=== PATIENT | female | born 1940 | race Caucasian/White ===

== ENCOUNTER → 2023-01-23 10:45 | Outpatient (CLI) | payer MEDICARE, BC, SELFPAY ==
--- NOTE | 2023-01-23 | DI.NM.S_ITS ---
PROCEDURE: NM BONE 3 PHASE RADIOPHARMACEUTICAL: 21.2 mCi Tc-99m MDP IV. INDICATIONS: LEFT ISCHIAL DECUBITUS ULCER TECHNIQUE: Multiple bone scintigrams were obtained after intravenous injection of Tc-99m MDP, including flow, blood pool, and delayed images centered to the region of interest. COMPARISON: [facility], RG, CT PELVIS W/O CONTRAST, 11/25/2022, 11:30. FINDINGS: A triple phase bone scan was obtained, including flow, blood pool and delayed images centered to the pelvis. The posterior flow and blood pool images demonstrate mildly increased activity in the medial aspect of the left buttock area. Delayed images demonstrate a focal uptake in the area involved the left ischial tuberosity and below the left ischial tuberosity. There is increased activity in hips bilaterally, right greater than left. IMPRESSION: 1. There is delayed increased activity involving the left ischial tuberosity and below the ischial tuberosity. On the posterior flow and blood pool images, there is mildly increased soft tissue activity in medial aspect of the left buttock suggesting soft tissue infection. There is no definitively increased bone uptake but tracer uptake in the bone (left ischium) on flow and blood pool images but overall osseous uptake for both phases are relatively poor and can be obscured by overlying soft tissue. The bone scan findings, therefore, are equivocal for acute osteomyelitis. Consider MRI if clinically indicated. 2. Increased activity in hips bilaterally, left greater than right, consistent with osteoarthritic changes. Dictated by: Cinthya Rodas M.D. on 01/23/2023 at 16:59 Approved by: Cinthya Rodas M.D. on 01/23/2023 at 17:15
== END ==
PROVIDERS: PCP Internal Medicine; Referring Provider Surgery; Visit Provider Surgery
DX: L89.324 Pressure ulcer of left buttock, stage 4 (principal)
CPT/HCPCS: 78315; A9503

== ENCOUNTER 2023-03-11 08:04 | Day surgery (SDC) | payer MEDICARE, BC, SELFPAY ==
[2023-03-11] VITALS (14 sets, daily range): BP systolic 86–123; BP diastolic 49–73; PULSE 67–90; RESP 10–18; TEMP 35.1–36.2; O2SAT 96–100; BMI 27.8
[2023-03-11] MEDS: LACTATED RINGERS 1,000 ML 42 ML IV (09:14)
[2023-03-11] MEDS: ACETAMINOPHEN 325 MG TABLET 975 MG PO (09:16)
--- NOTE | 2023-03-11 10:21 | P.HP_ITS ---
History of Present Illness History of Present Illness Date Patient Seen: 03/11/23 Time Patient Seen: 10:21 Chief complaint: OPB Narrative: Corinne is 82-year-old woman with a left ischial decubitus ulcer. See prior office notes for more details. She comes in today for debridement. COUNTS INCLUDE 234 BEDS AT THE [facility] Medical History (Updated 12/16/22 @ 16:26 by José Miguel Pepper MD) Hx of colonic polyps Surgical History (Updated 03/07/23 @ 09:43 by Marianna Bailon RN) History of hysterectomy H/O section Hx of appendectomy Social History household members: none Smoking Status: Never smoker alcohol intake: former Meds Home Medications and Allergies Home Medications Medication Instructions Recorded Confirmed Type ascorbic acid (vitamin C) 500 mg 500 mg PO DAILY 12/16/22 03/11/23 History tablet cholecalciferol (vitamin D3) 25 25 mcg PO DAILY 12/16/22 03/11/23 History mcg (1,000 unit) capsule magnesium 250 mg tablet 250 mg PO DAILY 12/16/22 03/11/23 History Allergies Allergy/AdvReac Type Severity Reaction Status Date / Time No Known Drug Allergies Allergy Verified 03/11/23 09:05 Exam Vital Signs (past 8 hours): - 03/11/23 09:08 Temperature 97.1 F L Pulse Rate 90 Respiratory Rate 16 Blood Pressure 86/68 L Pulse Oximetry 100 Oxygen Delivery Method Room Air Oxygen Delivery Method Room Air Narrative Exam Narrative: There is a left ischial decubitus ulcer Assessment & Plan Assessment and plan (1) 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 A wound VAC will be applied. She will stay overnight in the hospital tonight.
--- NOTE | 2023-03-11 11:02 | PM.EVENT ---
Event Note Date Patient Seen: 03/11/23 Time Patient Seen: 11:02 Event Note (Rapid Response, Code, or fall): The patient was scheduled for a debridement of a left ischial decubitus ulcer. She was brought back to the operating room and the dressing was removed and the wound appearted to have healed over completely. There was no open skin. There was no fluctuance under the skin. The ischium was palpated and no purulence could be expressed. The planned operation was cancelled.
--- NOTE | 2023-03-11 11:47 | SUR.PHASEI ---
Report called to Becca Haywood.
--- NOTE | 2023-03-11 12:05 | SUR.PHASEI ---
Patient transferred to the floor with walker and belongings bag. She was able to transfer herself to the bed, minimal assist. Dressing CDI. IV patent. Bedside report given to Becca.
--- NOTE | 2023-03-11 18:57 | PC.WOUNDPHOT ---
left healed decub
--- NOTE | 2023-03-11 18:59 | PC.WOUNDPHOT ---
left healed decub
[2023-03-12 05:34] VITALS: BP 120/66; PULSE 86; RESP 16; TEMP 35.8; O2SAT 94
[2023-03-12 08:00] VITALS: BP 104/56; PULSE 76; RESP 16; TEMP 36.1; O2SAT 100
--- NOTE | 2023-03-12 10:57 | PC.NURSE ---
discharge instructions were given to patient. pt has no further questions.
--- NOTE | 2023-03-12 11:36 | CM.DANOTE ---
DCP Assessment Note pt is a 82yo F here under the care of Dr Pepper, scheduled for a debridement of her left ischial decubitus ulcer on 03.11.23. Per surgeon report, when pt was brought back to operating room the wound had healed completely and the planned operation was cancelled. Pt stayed overnight due to being under anesthesia. PCP Yadira Ochoa Payer Medicare and BCBS [place]. GLOBAL CLIMATE CHANGE RESEARCHER reviewed EMR. GLOBAL CLIMATE CHANGE RESEARCHER entered room and introduced self and role. Pt resting in bed. Pt preoccupied with time of dc due to her ride needing to pick her up at 1100. Per RN, pt would be able to leave by 1100 just fine. Pt confirms hx of estefani THOMPSON and requests/pt's preference is to continue with RN to check on wound and PT. Pt uses a walker at baseline. Lives alone but reports many local friends for assistance. GLOBAL CLIMATE CHANGE RESEARCHER spoke with [facility]ef[facility] THOMPSON intake Sandy. Confirms able to resume care for pt. GLOBAL CLIMATE CHANGE RESEARCHER faxed face sheet, f2f, order, and clinicals to [facility]ef[facility] THOMPSON. Plan: dc today with friend support. Estefani THOMPSON to follow for RN/PT. CM team will continue to follow as needed. MARCI Mares Discharge Planning/Care Management CM Discharge Assessment Start: 03/12/23 11:34 Freq: Status: Active Protocol: Document 03/12/23 11:35 (Rec: 03/12/23 11:36 [id number]) Discharge Planning Assessment Assigned Belt Knife Feeder MARCI Neri Advance Directives? Yes Advance Directives on File No History Provided By Patient,Medical Record Prior Living Arrangements Apartment/Condo Household Members none Type of transporation used prior to Relies on Others admit Independent with ADL's Yes Is patient alert and oriented? Yes Needs Assistance With Home Chores / Shopping DME Already Rented / Owned FWW / Walker Patient/Family Preference Home with Home Health Comment preference is to resume [facility]ef[facility] THOMPSON Barriers to Discharge No Discharge Plan Home Community Services Home Health Nurse Referrals Initiated Home Health If patient plan is home with home health Yes : Has signed face to face form been completed? SNF/HH Preference preference to resume with Estefani THOMPSON Whiteboard Updated in Patient Room with Yes name and ext. # of Belt Knife Feeder Review Status In Process Next Review Type Continued Stay Review Pre-Anesthesia Assessment Start: 03/07/23 09:33 Freq: Status: Discharge Protocol: Document 03/07/23 09:33 CAB (Rec: 03/07/23 09:43 CAB [id number]) Pre-Anesthesia Assessment Patient Information Reviewed Via Chart Review Primary Care Provider Yadria Ochoa Seen Specialist in Last 12 Months Yes Specialist Seen General surgeon Primary Language Slovenian Shipwright Supervisor Required No Height 175.26 cm Anesthesia Review Requested No Brick Chimney Supervisor No History of Falling (Recent or History of Yes ) Patient is completely paralyzed or No completely immobile Prosthesis or Orthotic Device Wheelchair Gait/Transferring Weak,Impaired Hx Sleep Apnea No Currently Taking a Beta Monica No Anti-Coagulant Therapy No Cardiac Testing No Hx Pacemaker/ICD No Pacemaker Rep Required? No Patient No Lactating No Marital Status / Lives With none
== END 2023-03-12 11:15 | disposition home or self-care (01) ==
LOC: OR 08:09 → AC 09:12
PROVIDERS: PCP Internal Medicine; Referring Provider Surgery; Visit Provider Surgery
PROC: (CPT 11042; principal; 2023-03-11 09:45)
DX: L89.324 Pressure ulcer of left buttock, stage 4 (principal); Z53.8 Procedure and treatment not carried out for other reasons
CPT/HCPCS: 11042; J2405; J2704; J3010; J3490